=== PATIENT | female | born 1935 | race Caucasian/White ===

== ENCOUNTER 2019-10-15 01:11 | Emergency (ER) | payer MEDICARE, OTHER ==
[~2019-10-15] VITALS: Ht 160 cm; Wt 81.8 kg
[2019-10-15 01:46] LABS: BASOPHILS % (AUTO) 0.4 % (0-1); EOSINOPHILS # (AUTO) 0.1 X10'3 (0-0.9); EOSINOPHILS % (AUTO) 0.7 % (0-6); HEMATOCRIT 35.7 % (35.0-45.0); HEMOGLOBIN 12.3 g/dl (12.0-16.0); LYMPHOCYTES # (AUTO) 2.9 X10'3 (1.1-4.8); MEAN CORPUSCULAR HEMOGLOBIN 32.8 PG (27.0-31.0); MEAN CORPUSCULAR HGB CONC 34.4 g/dL (33.0-36.5); MEAN CORPUSCULAR VOLUME 95.4 FL (78-98); MEAN PLATELET VOLUME 8.7 FL (7.4-10.4); MONOCYTES # (AUTO) 0.8 X10'3 (0-0.9); MONOCYTES % (AUTO) 8.8 % (2-12); NEUTROPHILS # (AUTO) 5.3 X10'3 (1.8-7.7); NEUTROPHILS % (AUTO) 58.1 % (42-75); PLATELET COUNT 277 X10'3 (140-440); RED BLOOD COUNT 3.74 X10'6 (4.20-5.60); RED CELL DISTRIBUTION WIDTH 15.5 % (11.5-14.5); WHITE BLOOD COUNT 9.1 X10'3 (4.5-11.0)
[2019-10-15 01:58] LABS: ALANINE AMINOTRANSFERASE 26 U/L (12-78); ALBUMIN 3.5 G/DL (3.4-5.0); ALBUMIN/GLOBULIN RATIO 1.1 (1.1-1.5); ALKALINE PHOSPHATASE 40 IU/L (46-116); ANION GAP -2 (8-16); ASPARTATE AMINO TRANSFERASE 9 U/L (10-37); BILIRUBIN,TOTAL 0.2 MG/DL (0.1-1.0); BLOOD UREA NITROGEN 27 MG/DL (7-18); BUN/CREATININE RATIO 23.7 (6.6-38.0); CALCIUM 9.7 MG/DL (8.5-10.1); CHLORIDE 101 MMOL/L (99-107); CREATININE 1.14 MG/DL (0.40-0.90); GLUCOSE 175 MG/DL (70-104); POTASSIUM 4.3 MMOL/L (3.5-5.1); SODIUM 136 MMOL/L (135-145); TOTAL CARBON DIOXIDE 36.7 MMOL/L (24-32); TOTAL PROTEIN 6.6 G/DL (6.4-8.2); eGFR 45 ML/MIN
[2019-10-15 02:02] LABS: MAGNESIUM 1.9 MG/DL (1.5-2.4); TROPONIN I < 0.04 NG/ML (0.0-0.05)
[2019-10-15 02:06] LABS: PARTIAL THROMBOPLASTIN TIME 25 SECONDS (22-32)
[2019-10-15] MEDS ORDERED: nitroGLYCERIN 0.2mg/hour patch TD ONE (04:10)
[2019-10-15] MEDS ORDERED: albuterol 2.5 MG/3 ML nebule NEB ONE (04:10)
[2019-10-15] MEDS ORDERED: methylPREDNISolone sod succ 125mg/2ml vial IV ONE (05:15)
--- NOTE | 2019-10-15 06:25 | NUR ---
Pt does not know her phone number, but did have an address. Pt had been saturaing @ 99% on 12L all night. In preparation for transportation home via taxi, pt began to desaturate. Pt voiced concern about being sent home via taxi "because don't have my oxygen and don't know if it's working at home." She reports her daughter works her for EMS. Will continue to work to get pt transported home including getting contact information.
--- NOTE | 2019-10-15 06:54 | NUR ---
DAUGHTER, KARISSA, CALLED IN AND STATES SHE IS ON HER WAY TO HEAD FILTER [employer] PATIENT. KARISSA'S PHONE NUMBER,
--- NOTE | 2019-10-15 08:22 | NUR ---
DAUGHTER HERE FOR DISCHARGE TRANSPORTATION. PATIENT READY FOR DC AND HAS ALREADY SIGNED PAPERWORK. DEPARTED FROM UNIT, PER WC, IN GOOD CONDITION. PATIENT IS WEARING HOME O2 PER NC.
[2019-10-15 08:24] VITALS: BP 99/54
== END 2019-10-15 08:25 | disposition home or self-care (01) ==
LOC: ER 01:12
DX: J44.1 Chronic obstructive pulmonary disease with (acute) exacerbation (principal); I10 Essential (primary) hypertension; I11.0 Hypertensive heart disease with heart failure; I50.9 Heart failure, unspecified; E11.9 Type 2 diabetes mellitus without complications; Z87.01 Personal history of pneumonia (recurrent)
CPT/HCPCS: 36415; 71045; 80053; 83735; 83880; 84484; 85025; 85610; 85730; 93005; 94640; 96374; 99284; J2930; 94760

== ENCOUNTER 2020-06-18 08:29 | Day surgery (SDC) | payer MEDICARE, OTHER ==
[2020-06-18] VITALS (7 sets, daily range): BP systolic 124–154; BP diastolic 53–78
[~2020-06-18] VITALS: Ht 160 cm; Wt 87.4 kg
[2020-06-18] MEDS ORDERED: AMLO10TA13 PO (09:03)
[2020-06-18] MEDS ORDERED: SITA1TBM7 PO (09:03)
[2020-06-18] MEDS ORDERED: LISI40TA4 PO (09:03)
[2020-06-18] MEDS ORDERED: FLUT1BLS4 INH (09:03)
[2020-06-18] MEDS ORDERED: ATOR20TA PO (09:03)
[2020-06-18] MEDS ORDERED: PRE5T PO (09:03)
[2020-06-18] MEDS ORDERED: LANTUS SQ (09:03)
[2020-06-18] MEDS ORDERED: IPRA3AMP31 IH (09:03)
[2020-06-18] MEDS ORDERED: CARV25TA PO (09:03)
[2020-06-18] MEDS ORDERED: FURO-149 PO (09:03)
[2020-06-18] MEDS ORDERED: EZET10TA6 PO (09:03)
[2020-06-18] MEDS ORDERED: ACET-2615 PO (09:03)
[2020-06-18] MEDS ORDERED: DULO-31 PO (09:03)
[2020-06-18] MEDS ORDERED: ASPI-1265 PO (09:03)
[2020-06-18 10:49] LABS: LDH,BODY FLUID 90 U/L; TOTAL PROTEIN,BODY FLUID 3.7 G/DL
[2020-06-18 11:21] LABS: BF RBC COUNT 320 /CU MM; BF WBC COUNT 330 /CU MM (0-1000); BFAPPEAR HAZY; BFCOLOR YELLOW; BFVOLUME 50 ML; LYMPHOCYTES,BODY FLUID 76 %; NEUTROPHILS,BODY FLUID 13 %
[2020-06-18 11:22] LABS: BF MESOTHELIAL CELLS FEW; EOSINOPHILS,BODY FLUID 1 %; MONOCYTES,BODY FLUID 10 %
== END 2020-06-18 10:35 | disposition home or self-care (01) ==
LOC: SSTAY O 08:29
PROVIDERS: ATTEND Radiology Vascular & Interventional Radiology
DX: J90 Pleural effusion, not elsewhere classified (principal); J44.9 Chronic obstructive pulmonary disease, unspecified; E11.9 Type 2 diabetes mellitus without complications; I50.30 Unspecified diastolic (congestive) heart failure; Z99.81 Dependence on supplemental oxygen
CPT/HCPCS: 32555; 49083; 71045; 83615; 84157; 87070; 89051